=== PATIENT | male | born 1925 | race Caucasian/White ===

== ENCOUNTER 2016-10-18 13:03 | Emergency (ER) | payer MEDICARE ==
--- NOTE | 2016-10-18 13:48 | ED ---
General Adult HPI - General Chief complaint: Weakness Stated complaint: weakness Time Seen by Provider: 10/18/16 13:24 Source: patient, family, RN notes reviewed Mode of arrival: wheelchair Limitations: no limitations - History of Present Illness Initial comments: 89-year-old male patient presents to emergency department today for complaints of generalized weakness. Patient states that the weakness started on Wednesday and has been progressively getting worse since then. Patient states that he is so weak that his legs give out on him. Patient has had 4 falls since . Patient states he did hit his head during one of the falls but he denies any loss of consciousness or injury. His only other complaint is frequency of urination and some constipation, though he did have a bowel movement today. Patient denies any headache, chest pain, back pain, shortness of breath, dizziness, abdominal pain, nausea, vomiting, or diarrhea. He denies any blurred or double vision. Denies any unilateral weakness. He is not having any dysuria or hematuria. Patient denies any dark, bloody, or black stools. Patient does have a decreased appetite. - Related Data Home Medications Medication Instructions Recorded Confirmed Aspirin EC [Ecotrin Low Dose] 81 mg PO DAILY 04/10/14 10/18/16 Clopidogrel [Plavix] 75 mg PO DAILY 04/10/14 10/18/16 Omeprazole [PriLOSEC] 20 mg PO 04/10/14 10/18/16 Tamsulosin [Flomax] 0.4 mg PO DAILY 04/10/14 10/18/16 amLODIPine [Norvasc] 5 mg PO DAILY 04/10/14 10/18/16 Ergocalciferol [Vitamin D2] 50,000 unit PO TU 10/18/16 10/18/16 Furosemide [Lasix] 20 mg PO DAILY 10/18/16 10/18/16 Levothyroxine Sodium [Synthroid] 200 mcg PO DAILY 10/18/16 10/18/16 Losartan Potassium 100 mg PO DAILY 10/18/16 10/18/16 Melatonin 10 mg PO 10/18/16 10/18/16 Metoprolol Tartrate [Lopressor] 50 mg PO BID 10/18/16 10/18/16 Mirabegron [Myrbetriq] 50 mg PO DAILY 10/18/16 10/18/16 Potassium Chloride [Klor-Con 10] 10 meq PO DAILY 10/18/16 10/18/16 Sennosides/Docusate Sodium 1 tab PO HS 10/18/16 10/18/16 [Docusate Sodium-Senna Tablet] Simvastatin [Zocor] 10 mg PO HS 10/18/16 10/18/16 hydrALAZINE HCL [Apresoline] 50 mg PO TID 10/18/16 10/18/16 Allergies Allergy/AdvReac Type Severity Reaction Status Date / Time No Known Allergies Allergy Verified 10/18/16 13:53 Review of Systems ROS Statement: Those systems with pertinent positive or pertinent negative responses have been documented in the HPI. ROS Other: All systems not noted in ROS Statement are negative. Past Medical History Past Medical History: Cancer, CVA/TIA, GERD/Reflux, Hyperlipidemia, Hypertension , Prostate Disorder, Thyroid Disorder Additional Past Medical History / Comment(s): HX OF COLON CA, BELLS PALSEY. History of Any Multi-Drug Resistant Organisms: None Reported Past Surgical History: Bowel Resection, Joint Replacement, Orthopedic Surgery, Prostate Surgery Additional Past Surgical History / Comment(s): LT KNEE REPLACEMENT, RT KNEE SURG , THYROID SURG, KIDNEY STONES. Past Anesthesia/Blood Transfusion Reactions: No Reported Reaction Past Psychological History: No Psychological Hx Reported Smoking Status: Former smoker Past Alcohol Use History: None Reported Past Drug Use History: None Reported General Exam Limitations: no limitations General appearance: alert, in no apparent distress Head exam: Present: atraumatic, normocephalic, normal inspection Eye exam: Present: normal appearance, PERRL, EOMI. Absent: scleral icterus, conjunctival injection, nystagmus, periorbital swelling ENT exam: Present: normal exam, normal oropharynx, mucous membranes moist, TM's normal bilaterally. Absent: mucous membranes dry Neck exam: Present: normal inspection, full ROM. Absent: tenderness, meningismus, lymphadenopathy, thyromegaly Respiratory exam: Present: normal lung sounds bilaterally. Absent: respiratory distress, wheezes, rales, rhonchi, stridor Cardiovascular Exam: Present: regular rate, normal rhythm, normal heart sounds. Absent: irregular rhythm, systolic murmur, diastolic murmur, rubs, gallop, clicks GI/Abdominal exam: Present: normal bowel sounds. Absent: distended, tenderness , guarding, rebound, rigid, diminished bowel sounds, hyperactive bowel sounds, hypoactive bowel sounds, organomegaly, mass Extremities exam: Present: normal inspection, full ROM, normal capillary refill. Absent: tenderness, pedal edema, calf tenderness Back exam: Present: normal inspection. Absent: CVA tenderness (R), CVA tenderness (L) Neurological exam: Present: alert, oriented X3, CN II-XII intact Expanded Neurological exam: Present: other (Patient has difficulty with right leg raise due to old injury to the right knee.) Cranial nerves: EOM's Intact: Normal, Gag Reflex: Normal, Tongue Deviation: Normal, Facial Sensation: Normal, Facial Palsy with Forehead Movement: Normal, Facial Palsy without Forehead Movement: Normal Motor strength exam: RUE: 4, LUE: 4, RLE: 4, LLE: 4 Eye Response: (4) open spontaneously Motor Response: (6) obeys commands Verbal Response: (5) oriented Course Vital Signs 10/18/16 10/18/16 10/18/16 13:16 14:05 14:55 Temperature 97.8 F Pulse Rate 76 70 Pulse Rate [ 76 House Wrecker ] Respiratory 20 18 Rate Blood Pressure 194/99 188/103 O2 Sat by Pulse 96 99 Oximetry 10/18/16 10/18/16 16:01 16:31 Temperature 98.6 F Pulse Rate 94 82 Pulse Rate [ House Wrecker ] Respiratory 18 18 Rate Blood Pressure 192/96 176/90 O2 Sat by Pulse 97 97 Oximetry EKG Findings - EKG Comments: EKG Findings:: EKG obtained at 1420 reveals sinus rhythm with sinus arrhythmia with first degree AV block, left axis deviation, prolonged QT. No ST elevation or depression. Ventricular rate 75. SD interval 250, QRS muslim 80, QT 436, QTC 486. EKG compared to exam from 07/21/2015. Changes appear to be chronic in nature. Medical Decision Making - Medical Decision Making 89-year-old male presented for denies weakness. Patient's lab work official mild dehydration. Patient was hydrated here. Patient was able to and they down the hallway with no difficulty using a walker. Patient has a follow-up appointment on Wednesday with Dr. park. We did discuss rectal seen of his Synthroid should be 200 g daily. Patient was recently given more Synthroid 10 prescribed. Patient has no complaints at this time. We discussed daily activities, possible need for physical therapy for conditioning. Return parameters were discussed. - Lab Data Result diagrams: 10/18/16 13:46 10/18/16 13:46 Lab Results 10/18/16 10/18/16 10/18/16 Range/Units 13:46 13:46 13:46 WBC 6.5 (3.8-10.6) k/uL RBC 4.89 (4.30-5.90) m/uL Hgb 15.5 (13.0-17.5) gm/dL Hct 46.0 (39.0-53.0) % MCV 94.1 (80.0-100.0) fL MCH 31.7 (25.0-35.0) pg MCHC 33.7 (31.0-37.0) g/dL RDW 13.6 (11.5-15.5) % Plt Count 197 (150-450) k/uL Neutrophils % 61 % Lymphocytes % 20 % Monocytes % 7 % Eosinophils % 8 % Basophils % 1 % Neutrophils # 4.0 (1.3-7.7) k/uL Lymphocytes # 1.3 (1.0-4.8) k/uL Monocytes # 0.5 (0-1.0) k/uL Eosinophils # 0.5 (0-0.7) k/uL Basophils # 0.1 (0-0.2) k/uL PT (9.0-12.0) sec INR (<1.1) APTT (22.0-30.0) sec Sodium 144 (137-145) mmol/L Potassium 4.1 (3.5-5.1) mmol/L Chloride 107 (98-107) mmol/L Carbon Dioxide 26 (22-30) mmol/L Anion Gap 11 mmol/L BUN 23 H (9-20) mg/dL Creatinine 1.70 H (0.66-1.25) mg/dL Est GFR (MDRD) Af Amer 46 (>60 ml/min/1.73 sqM) Est GFR (MDRD) Non-Af 38 (>60 ml/min/1.73 sqM) Glucose 137 H (74-99) mg/dL Calcium 9.3 (8.4-10.2) mg/dL Magnesium 2.1 (1.6-2.3) mg/dL Total Bilirubin 1.0 (0.2-1.3) mg/dL AST 26 (17-59) U/L ALT 28 (21-72) U/L Alkaline Phosphatase 71 (38-126) U/L Total Creatine Kinase 46 L (55-170) U/L CK-MB (CK-2) 0.3 (0.0-2.4) ng/mL CK-MB (CK-2) Rel Index 0.7 Troponin I 0.017 (0.000-0.034) ng/mL Total Protein 6.9 (6.3-8.2) g/dL Albumin 3.9 (3.5-5.0) g/dL TSH 0.108 L (0.465-4.680) mIU/L Free T4 (0.78-2.19) ng/dL Free T3 pg/mL (2.8-5.3) pg/ml Urine Color Urine Appearance (Clear) Urine pH (5.0-8.0) Ur Specific [place] (1.001-1.035) Urine Protein (Negative) Urine Glucose (UA) (Negative) Urine Ketones (Negative) Urine Blood (Negative) Urine Nitrate (Negative) Urine Bilirubin (Negative) Urine Urobilinogen (<2.0) mg/dL Ur Leukocyte Esterase (Negative) Urine RBC (0-5) /hpf Urine WBC (0-5) /hpf Hyaline Casts (0-2) /lpf Urine Mucus (None) /hpf 10/18/16 10/18/16 10/18/16 Range/Units 13:46 13:46 16:14 WBC (3.8-10.6) k/uL RBC (4.30-5.90) m/uL Hgb (13.0-17.5) gm/dL Hct (39.0-53.0) % MCV (80.0-100.0) fL MCH (25.0-35.0) pg MCHC (31.0-37.0) g/dL RDW (11.5-15.5) % Plt Count (150-450) k/uL Neutrophils % % Lymphocytes % % Monocytes % % Eosinophils % % Basophils % % Neutrophils # (1.3-7.7) k/uL Lymphocytes # (1.0-4.8) k/uL Monocytes # (0-1.0) k/uL Eosinophils # (0-0.7) k/uL Basophils # (0-0.2) k/uL PT 10.7 (9.0-12.0) sec INR 1.1 (<1.1) APTT 22.7 (22.0-30.0) sec Sodium (137-145) mmol/L Potassium (3.5-5.1) mmol/L Chloride (98-107) mmol/L Carbon Dioxide (22-30) mmol/L Anion Gap mmol/L BUN (9-20) mg/dL Creatinine (0.66-1.25) mg/dL Est GFR (MDRD) Af Amer (>60 ml/min/1.73 sqM) Est GFR (MDRD) Non-Af (>60 ml/min/1.73 sqM) Glucose (74-99) mg/dL Calcium (8.4-10.2) mg/dL Magnesium (1.6-2.3) mg/dL Total Bilirubin (0.2-1.3) mg/dL AST (17-59) U/L ALT (21-72) U/L Alkaline Phosphatase (38-126) U/L Total Creatine Kinase (55-170) U/L CK-MB (CK-2) (0.0-2.4) ng/mL CK-MB (CK-2) Rel Index Troponin I (0.000-0.034) ng/mL Total Protein (6.3-8.2) g/dL Albumin (3.5-5.0) g/dL TSH (0.465-4.680) mIU/L Free T4 2.46 H (0.78-2.19) ng/dL Free T3 pg/mL 3.8 (2.8-5.3) pg/ml Urine Color Yellow Urine Appearance Clear (Clear) Urine pH 6.5 (5.0-8.0) Ur Specific [place] 1.015 (1.001-1.035) Urine Protein 3+ H (Negative) Urine Glucose (UA) Trace H (Negative) Urine Ketones Negative (Negative) Urine Blood Negative (Negative) Urine Nitrate Negative (Negative) Urine Bilirubin Negative (Negative) Urine Urobilinogen <2.0 (<2.0) mg/dL Ur Leukocyte Esterase Negative (Negative) Urine RBC 1 (0-5) /hpf Urine WBC 1 (0-5) /hpf Hyaline Casts 5 H (0-2) /lpf Urine Mucus Rare H (None) /hpf Disposition Clinical Impression: Fatigue, Weakness, Mild dehydration Disposition: HOME SELF-CARE Condition: Stable Instructions: Weakness (ED) Additional Instructions: Please return to the Emergency Department if symptoms worsen or any other concerns. Time of Disposition: 17:20
[2016-10-18 13:56] LABS: Basophils # (A) 0.1 k/uL (0-0.2); Basophils % (A) 1 %; CH 32.4; CHCM 34.7; Eosinophils # (A) 0.5 k/uL (0-0.7); Eosinophils % (A) 8 %; HDW 2.86; HGB 15.5 gm/dL (13.0-17.5); Luc # (Auto) 0.18; Luc % (Auto) 3; Lymphocytes # (A) 1.3 k/uL (1.0-4.8); Lymphocytes % (A) 20 %; MCH 31.7 pg (25.0-35.0); MCHC 33.7 g/dL (31.0-37.0); MCV 94.1 fL (80.0-100.0); Mean Platelet Volume 7.9; Monocytes # (A) 0.5 k/uL (0-1.0); Monocytes % (A) 7 %; Neutrophils % (A) 61 %; RBC 4.89 m/uL (4.30-5.90); RDW 13.6 % (11.5-15.5); WBC 6.5 k/uL (3.8-10.6); WBC (Perox) 6.54
[2016-10-18] MEDS ORDERED: SODIUM CHLORIDE 0.9% 500 ML IV ONE ×3 (13:59→15:53)
[2016-10-18 14:04] LABS: INR 1.1 (<1.1); Partial Thromboplastin Time 22.7 sec (22.0-30.0); Prothrombin Time 10.7 sec (9.0-12.0)
[2016-10-18 14:08] LABS: Calcium 9.3 mg/dL (8.4-10.2); Magnesium 2.1 mg/dL (1.6-2.3); Potassium 4.1 mmol/L (3.5-5.1); Total Protein 6.9 g/dL (6.3-8.2)
--- NOTE | 2016-10-18 14:26 | CT ---
EXAMINATION TYPE: CT brain wo con DATE OF EXAM: 10/18/2016 2:15 PM HISTORY: weakness today, history of TIA CT DLP: 1072.3 mGycm. Automated Exposure Control for Dose Reduction was Utilized. TECHNIQUE: CT scan of the head is performed without contrast. COMPARISON: None. FINDINGS: There is no acute intracranial hemorrhage or midline shift identified. There is diffuse v entricular and sulcal prominence consistent with diffuse age-related cerebral atrophy. There is low- attenuation in the periventricular white matter consistent with chronic small vessel ischemic change. 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 There is infarct [place] old left occipital lobe near axial image 23. The globes are intact bilaterally with thinned lense s. There is rounded density inferiorly left maxillary sinus could reflect mucous retention cyst or p olyp. Some surrounding fluid is felt present . There is mild to moderate mucosal thickening involving ethmoid sinuses bilaterally. There is vascular calcification of distal internal carotid arteries pre sent bilaterally. IMPRESSION: No acute intracranial hemorrhage or midline shift. There is moderate to severe diffuse age-related cerebral atrophy and chronic small vessel ischemic change as well as suspected old infarc ts all noted along with possible acute left maxillary sinus disease.
[2016-10-18 14:28] LABS: Creatine Kinase MB 0.3 ng/mL (0.0-2.4); Troponin I 0.017 ng/mL (0.000-0.034)
--- NOTE | 2016-10-18 14:49 | XR ---
EXAMINATION TYPE: XR chest 2V DATE OF EXAM: 10/18/2016 2:24 PM COMPARISON: Prior chest x-ray July 21, 2015 HISTORY: Constipation and weakness. TECHNIQUE: Frontal and lateral views of the chest are obtained. FINDINGS: There is no focal air space opacity, pleural effusion, or pneumothorax seen. The cardiac silhouette size is upper limits of normal. Metallic stent graft abdominal aorta is partially imaged The osseous structures are somewhat demineralized. IMPRESSION: No acute cardiopulmonary process. No significant change from prior.
--- NOTE | 2016-10-18 14:51 | XR ---
EXAMINATION TYPE: XR KUB DATE OF EXAM: 10/18/2016 2:24 PM CLINICAL HISTORY: Constipation and pain. TECHNIQUE: 2 supine KUB images of the abdomen are obtained COMPARISON: Abdominal x-ray and CT abdomen and pelvis July 21, 2015. FINDINGS: Some paucity of small bowel gas, visualized gas is noted in nondistended small bowel loops. Gas and fecal material is seen in non-distended colon. Aortobiiliac metallic stent graft is now pre sent. There is left-sided pelvic phlebolith. No suspicious calcifications are seen. Underlying levoco nvex scoliosis centered in the lower lumbar spine is redemonstrated. IMPRESSION: Overall nonspecific favor nonobstructive bowel gas pattern.
[2016-10-18 14:58] VITALS: RESP 18
[2016-10-18] MEDS ORDERED: hydrALAZINE HCL 50 MG TAB PO STA (15:09)
[2016-10-18 16:05] VITALS: TEMP 98.6
[2016-10-18 16:32] VITALS: BP 176/90; PULSE 82
[2016-10-18 16:36] LABS: Appearance,Urine Clear (Clear); Bilirubin,Urine Negative (Negative); Glucose,Urine (UA) Trace (Negative); Ketones,Urine Negative (Negative); Leukocyte Esterase,Urine Negative (Negative); Mucus,Urine Rare /hpf; Nitrite,Urine Negative (Negative); PH, Urine 6.5 (5.0-8.0); Particle Count 1365; Protein,Urine 3+ (Negative); RBC,Urine 1 /hpf (0-5); Specific Gravity,Urine 1.015 (1.001-1.035); UA Billing (MACRO vs. MICRO) MICRO; Urobilinogen,Urine <2.0 mg/dL (<2.0); WBC,Urine 1 /hpf (0-5)
== END 2016-10-18 17:30 | disposition home or self-care (01) ==
LOC: EC 13:03
DX: R53.83 Other fatigue (principal); R53.1 Weakness; E86.0 Dehydration; Z79.899 Other long term (current) drug therapy; Z79.82 Long term (current) use of aspirin; Z86.73 Personal history of transient ischemic attack (TIA), and cerebral infarction without residual deficits; K21.9 Gastro-esophageal reflux disease without esophagitis; E78.5 Hyperlipidemia, unspecified; I10 Essential (primary) hypertension; N42.9 Disorder of prostate, unspecified; E07.9 Disorder of thyroid, unspecified; Z85.038 Personal history of other malignant neoplasm of large intestine; Z87.891 Personal history of nicotine dependence
CPT/HCPCS: 36415; 70450; 71020; 74000; 80053; 81001; 82550; 82553; 83735; 84439; 84443; 84481; 84484; 85025; 85610; 85730; 93005; 96360; 99285

== ENCOUNTER → 2017-05-20 | Outpatient (CLI) | payer MEDICARE ==
--- NOTE | 2017-05-21 07:37 | US ---
EXAMINATION TYPE: US kidneys/renal and bladder DATE OF EXAM: 05/20/2017 COMPARISON: US and CT CLINICAL HISTORY: R10.12 L flank pain. Pt states left flank pain EXAM MEASUREMENTS: Right Kidney: 12.7 x 6.9 x 5.2 cm Left Kidney: 12.9 x 5.6 x 4.5 cm Right Kidney: Cortical thinning, Multicystic, largest cyst lower/medial= 3.3 x 3.3 x 2.3 cm Left Kidney: Cortical thinning, Multicystic, largest mid/medial= 3.9 x 2.4 x 4.2 cm Bladder: wnl Bilateral Jets seen: No Incidental finding AAA= 4.1 cm transverse measurement, seen on previous CT IMPRESSION: 1. Bilateral cortical renal thinning and multiple bilateral renal cysts as well as renal sinus cysts with no evidence of hydronephrosis or nephrolithiasis. 2. Redemonstration of an abdominal aortic aneurysm measuring at least 4.1 cm as seen on the prior exa m of 07/21/2015.
== END | disposition home or self-care (01) ==
LOC: RADUSWWP 16:09
PROVIDERS: ATTEND Internal Medicine
DX: N28.1 Cyst of kidney, acquired (principal); N28.89 Other specified disorders of kidney and ureter; I71.4 Abdominal aortic aneurysm, without rupture
CPT/HCPCS: 76770